=== PATIENT | female | born 1980 | race Caucasian/White ===

== ENCOUNTER 2021-08-09 14:54 | Emergency (ER) | payer BC ==
[~2021-08-09] VITALS: Ht 157.5 cm; Wt 46.3 kg
[2021-08-09 14:55] VITALS: BP 120/78
--- NOTE | 2021-08-09 14:55 | NUR ---
MARIA L KAUR VIA GURNEY TO BED 02.
--- NOTE | 2021-08-09 14:59 | NUR ---
DR GASTELUM AT BEDSIDE
[2021-08-09] MEDS ORDERED: ONDANSETRON 4 MG/2 ML VIAL IVP ONE (15:05)
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
[2021-08-09 15:37] LABS: BASOPHILS % (AUTO) 0.3 % (0.0-2.0); EOSINOPHILS % (AUTO) 0.1 % (0.0-4.0); HEMATOCRIT 38.6 % (36-48); HEMOGLOBIN 12.7 g/dL (12.0-16.0); LYMPHOCYTES # (AUTO) 0.5 K/uL (2.5-16.5); LYMPHOCYTES % (AUTO) 3.8 % (20.5-51.1); MEAN CORPUSCULAR HEMOGLOBIN 29 pg (27-31); MEAN CORPUSCULAR HGB CONC 33 g/dL (33-37); MEAN CORPUSCULAR VOLUME 89.1 fL (80-94); MONOCYTES # (AUTO) 0.5 K/uL (0.8-1.0); MONOCYTES % (AUTO) 3.3 % (1.7-9.3); NEUTROPHILS # (AUTO) 12.5 K/uL (1.8-7.7); NEUTROPHILS % (AUTO) 92.5 % (42.2-75.2); PLATELET COUNT (AUTO) 198 K/uL (140-450); RED BLOOD CELL COUNT(AUTO) 4.32 MIL/uL (4.20-5.40); RED CELL DISTRIBUTION WIDTH 14.5 % (11.6-13.7); WHITE BLOOD COUNT (AUTO) 13.5 K/uL (4.8-10.8)
[2021-08-09 15:53] LABS: APPEARANCE,URINE CLEAR (CLEAR); BILIRUBIN,URINE NEGATIVE (NEGATIVE); BLOOD, URINE 3+ (NEGATIVE); COLOR,URINE YELLOW (YELLOW); LEUKOCYTE ESTERASE ,URINE NEGATIVE (NEGATIVE); NITRITE, URINE NEGATIVE (NEGATIVE); PH,URINE 6.5 (5.0-9.0); UGLUCOSE NEGATIVE (NEGATIVE)
[2021-08-09 16:01] LABS: ALBUMIN 4.1 g/dL (3.4-5.0); ANION GAP 9.8 (8-16); CARBON DIOXIDE 26.5 mmol/L (21-32); CREATININE 0.6 mg/dL (0.6-1.3); POTASSIUM 3.3 mmol/L (3.5-5.1); TOTAL BILIRUBIN 0.5 mg/dL (0.0-1.0)
[2021-08-09 16:11] LABS: RBC,URINE 20-50 /HPF (0-5)
[2021-08-09 16:12] LABS: WBC,URINE NONE SEEN /HPF (0-5)
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
--- NOTE | 2021-08-09 17:59 | NUR ---
PT AMBULATED TO BATHROOM WITH STEADY GAIT
[2021-08-09] MEDS ORDERED: POTASSIUM CHLORIDE 10 MEQ TABER PO ONE (18:45)
[2021-08-09] MEDS ORDERED: ONDA-188 SL ×2 (18:51→21:22)
[2021-08-09 19:12] VITALS: BP 100/61
--- NOTE | 2021-08-09 19:13 | NUR ---
Patient discharged with v/s stable. Written and verbal after care instructions given and explained. Patient alert, oriented and verbalized understanding of instructions. Ambulatory with steady gait. All questions addressed prior to discharge. ID band removed. Patient advised to follow up with PMD. Rx of ZOFRAN ODT given. Patient educated on indication of medication including possible reaction and side effects. Opportunity to ask questions provided and answered.
== END 2021-08-09 19:08 | disposition home or self-care (01) ==
LOC: MED 14:54
DX: T62.2X4A Toxic effect of other ingested (parts of) plant(s), undetermined, initial encounter (principal); R11.2 Nausea with vomiting, unspecified; R00.2 Palpitations; Z79.899 Other long term (current) drug therapy; Y92.89 Other specified places as the place of occurrence of the external cause
CPT/HCPCS: 36415; 80053; 81001; 81025; 83690; 85025; 93005; 96374; 99284; J2405